=== PATIENT | female | born 2000 | race Caucasian/White ===

== ENCOUNTER 2021-08-18 17:15 | Emergency (ER) | payer BC ==
[~2021-08-18] VITALS: Ht 157.5 cm; Wt 49.0 kg
[2021-08-18 18:43] LABS: URINE BILIRUBIN NEGATIVE (Negative); URINE BLOOD 2+ (Negative); URINE CLARITY CLEAR; URINE COLOR YELLOW; URINE GLUCOSE-RANDOM* NEGATIVE (Negative); URINE KETONES NEGATIVE (Negative); URINE LEUKOCYTES-REFLEX TRACE (Negative); URINE NITRITE-REFLEX NEGATIVE (Negative); URINE PROTEIN (DIPSTICK) NEGATIVE (Negative); URINE UROBILINOGEN 0.2 E.U./dl (0.2-1.0)
[2021-08-18 19:03] LABS: SQUAMOUS 4-10 Moderate /LPF (0-3)
[2021-08-18 19:04] LABS: BACTERIA-REFLEX 1-9 Few /HPF (None Seen); CASTS None Seen /LPF (None Seen); CRYSTALS None Seen /LPF (None Seen); MUCUS 0-3 Light strn/LPF (None Seen); URINE RBC 3-10 Few /HPF (NONE SEEN); URINE WBC-REFLEX 0-5 Rare /HPF (0-5)
[2021-08-18 19:43] LABS: ABSOLUTE NEUTROPHILS 3.3 thou/uL (1.4-8.2); BASOPHILS 0.3 % (0.0-2.0); EOSINOPHILS 0.5 % (0.0-3.0); HEMATOCRIT 36.2 % (37.0-47.0); HEMOGLOBIN 12.2 gm/dL (12.0-15.0); LYMPHOCYTES 17.2 % (24.0-44.0); MCH 29.9 pg (26.0-34.0); MCHC 33.7 g/dL (28.0-37.0); MCV 88.8 fL (80.0-100.0); MONOCYTES 11.8 % (1.0-8.0); PLATELET COUNT 159 thou/uL (150-400); POLYS 70.2 % (36.0-66.0); RBC 4.08 mil/uL (4.20-5.00); RDW 13.1 % (10.5-14.5); WBC 4.7 thou/uL (4.0-11.0)
[2021-08-18 21:38] LABS: CALCIUM 8.2 mg/dL (8.5-10.1); CREATININE 0.7 mg/dL (0.6-1.0); POTASSIUM 3.4 mmol/L (3.5-5.1)
[2021-08-18] MEDS ORDERED: ZANAFLEX4 MG PO (21:51)
[2021-08-18] MEDS ORDERED: HYDROCODON-ACE1 EAC7 PO (21:51)
[2021-08-18 22:06] VITALS: BP 103/70
== END 2021-08-18 22:06 | disposition home or self-care (01) ==
LOC: ER 17:15
PROVIDERS: Nurse Practitioner
DX: M43.6 Torticollis (principal); Z88.0 Allergy status to penicillin; Z88.1 Allergy status to other antibiotic agents; Z88.8 Allergy status to other drugs, medicaments and biological substances